=== PATIENT | female | born 1985 | race Caucasian/White ===

== ENCOUNTER 2022-07-03 04:25 | Emergency (ER) | payer MEDICAID ==
[~2022-07-03] VITALS: Ht 172.7 cm; Wt 55.9 kg
[2022-07-03 07:12] VITALS: BP 108/72
== END 2022-07-03 07:17 | disposition home or self-care (01) ==
LOC: ER 04:26
DX: R19.5 Other fecal abnormalities (principal)
CPT/HCPCS: 99281